=== PATIENT | female | born 1935 | race Caucasian/White ===

== ENCOUNTER → 2016-08-22 | Outpatient (CLI) | payer MEDICARE, OTHER ==
[2016-08-22 14:14] LABS: BASOPHIL # 0.1 K/uL (0.0-0.2); EOSINOPHIL # 0.2 K/uL (0.0-0.5); EOSINOPHIL % 2.8 %; HEMATOCRIT 44.8 % (30.0-46.0); HEMOGLOBIN 15.1 g/dL (10.0-15.0); IMMATURE GRANULOCYTE % 0.2 %; LYMPHOCYTE # 2.2 K/uL (0.8-4.0); LYMPHOCYTE % 26.1 %; MCH 29.4 pg (27.0-34.0); MCHC 33.7 gm/dL (32.0-36.5); MCV 87.3 fl (83.0-98.0); MONOCYTE # 0.5 K/uL (0.0-1.0); MONOCYTE % 5.4 %; MPV 9.6 fl (9.4-12.4); NEUTROPHIL # (ANC) 5.4 K/uL (1.8-7.8); NEUTROPHIL % 64.5 %; NRBC % 0 /100WBC (0-0.00); PLATELET COUNT 247 K/uL (150-450); RBC 5.13 M/uL (3.00-5.00); RDW-CV 13.4 % (11.9-14.6); WBC 8.3 K/uL (4.0-11.0)
[2016-08-22 14:29] LABS: ALBUMIN 4.2 gm/dL (3.5-5.0); ALK PHOS 113 IU/L (33-138); ALT 24 IU/L (12-78); ANION GAP 12.4 (10.0-19.0); AST 21 IU/L (10-40); BLOOD UREA NITROGEN 11 mg/dL (6-24); CALCIUM 9.6 mg/dL (8.5-10.5); CHLORIDE 100 mMol/L (96-110); CO2 29 mMol/L (22-32); CREATININE 0.8 mg/dL (0.5-1.1); ESTIMATED GFR (MDRD EQUATION) > 60; POTASSIUM 3.4 mMol/L (3.7-5.1); SODIUM 138 mMol/L (135-145); TOTAL BILIRUBIN 0.7 mg/dL (0.0-1.5); TOTAL PROTEIN 7.7 g/dL (6.0-8.4)
== END | disposition disaster alternative care site (69) ==
LOC: LNHI 14:07
PROVIDERS: Internal Medicine Cardiovascular Disease
DX: E78.2 Mixed hyperlipidemia (principal); I25.119 Atherosclerotic heart disease of native coronary artery with unspecified angina pectoris; I10 Essential (primary) hypertension

== ENCOUNTER → 2016-09-12 | Outpatient (CLI) | payer MEDICARE, OTHER ==
--- NOTE | ~2016-09-12 | ESTC ---
Cardiac Perfusion Imaging Demographics Patient Name JENNI Hendrix Gender Female Patient Number [id number] Race Visit Number [id number] [place] [id number] Room Number Accession Number [id number] Height 61 inches Date of 1935 Weight 130 pounds Yuliana Ball MD Interpreting Carolin Bustillos Date of study 09/12/2016 Physician MD Supervising MD/MLP Yuliana Thomas NM Technologist A Ordering Physician Yuliana Thomas Stress A testing and regulating technician Stress ECG Reading Yuliana Thomas Nurse Karla Ojeda RN Physician A The procedure was explained in detail to the patient. Risks, complications and alternative treatments were reviewed. Written consent was obtained. Medications Reviewed with Patient prior to Procedure. Procedure Procedure Type: Nuclear Stress Test:Exercise, Cardiolite Stress Test Procedure Start time: 09/12/2016 08:05 Indications: Chest pain and Shortness of Breath with Exertion. Risk Factors The patient risk factors include:hypercholesterolemia and hypertension. Conclusions Summary Perfusion Images: The overall quality of the study is good. Left ventricular cavity is noted to be normal on the stress and normal on the rest images. There is no evidence of abnormal lung activity. The right ventricle is not visualized an cannot be assessed. Impression ECG portion of exercise stress test is clinically negative for ischemia by diagnostic criteria. Patient exercised according to the Colin protocol for 6:01 minutes, reached 99% of MPHR, achieving 7 METS. Myocardial perfusion imaging is normal. Overall left ventricular systolic function was normal without regional wall motion abnormalities. Calculated LVEF is 79% and TID ratio is 0.88. Stress Protocols Resting ECG SR, Ant T inversions Pre-stress physical exam: Patient assessed by Dr Bridges prior to testing. Stress Protocol:Exercise Peak HR:137 bpm Predicted HR: 140 bpm % of predicted HR: 98 Test duration:06:00 min ECG Findings No ECG changes suggestive of ischemia. Arrhythmias PACs and PVCs Symptoms Shortness of breath. Stress Interpretation Appropriate hemodynamic response to exercise. No significant ST-T wave changes with exercise. EKG portion is negative for ischemia by diagnostic criteria. The Joyce Treadmill score was 6 .This corresponds to a low risk stress test. Imaging Results Summed scores - Summed stress score: 0 - Summed rest score: 0 - Summed difference score: 0 Stress ejection Ejection fraction:80 % EDV :59 ml ESV :12 ml Stroke volume :47 ml LV mass :96 gr Imaging Protocols Rest Stress Isotope:Tc99m Sestamibi IV Isotope: Tc99m Sestamibi IV Isotope dose:10.9 mCi Isotope dose:34.7 mCi Date:09/12/2016 07:07 Date:09/12/2016 08:46 Technique: SPECT Technique: Gated Supine SPECT Supine Scan Time:45-60 minutes post Scan Time:45-60 minutes post injection injection Medical History Admission Data Admission date: 09/12/2016 Admission Time: 06:48 Hospital Status: Outpatient. Signatures dtt: SANTANA URIAS dtd: 09/12/16 0805 Physician Self Edit
== END | disposition disaster alternative care site (69) ==
LOC: GRAD 08-29 07:15
DX: I25.10 Atherosclerotic heart disease of native coronary artery without angina pectoris (principal); E78.00 Pure hypercholesterolemia, unspecified; I10 Essential (primary) hypertension
CPT/HCPCS: A9500

== ENCOUNTER 2016-11-17 12:37 | Emergency (ER) | payer MEDICARE, OTHER ==
--- NOTE | ~2016-11-17 | ER ---
PATIENT'S NAME: DONALD ARTEAGA [facility] AGE: 81 Y [address] ROOM: [place] [address] LOCATION: ED ADMIT DATE: 11/17/2016 ER/Outpatient Report DISCHARGE DATE: 11/17/2016 FAMILY PHYSICIAN: Gallo Leon MD ATTENDING PHYSICIAN: Ana Cristina Yun Time of Arrival: 1237 hours. Time of Evaluation: 1300 hours. CHIEF COMPLAINT: Lightheaded, history of a pacemaker. HISTORY OF PRESENT ILLNESS: This is an 81-year-old female, who presents to the ER. States last evening, she was lying in bed and had episodes of feeling lightheaded. She states her head felt full, and then she had the hot sensation that radiated from the top of her head down to her face. She states that it did not make her feel short of breath. She did not have any chest pain with these episodes. She states she had 3 of them in about a half an hour time. She states she was able to sleep all night. She woke up at 9:30 this morning, and then she had another episode around 10 o'clock. She called her daughter, and on their way here to be evaluated she had another one. She has had no recent illness. No fever or chills. She states when she has these episodes, she feels like she is going to pass out. She states she is conscious through all of the episodes. She states she never has felt weak and has had no troubles with her speech during them. She states that when she had her pacemaker placed a couple of years ago, she had similar instances where she had syncopal episodes and that resulted in her pacemaker. She denies any other problems at this time. ALLERGIES: PENICILLIN, SULFA, AND LISINOPRIL. MEDICATIONS: Please see medication list in nurse's notes. PAST MEDICAL HISTORY: Hypertension, pacemaker, hypothyroidism. SOCIAL HISTORY: Denies smoking, drug, or alcohol use. REVIEW OF SYSTEMS: All systems reviewed and were negative with the exception of those discussed in the HPI. PATIENT'S NAME: DONALD ARTEAGA [facility] AGE: 81 Y [address] ROOM: [place], [place] [address] LOCATION: ED ADMIT DATE: 11/17/2016 ER/Outpatient Report DISCHARGE DATE: 11/17/2016 FAMILY PHYSICIAN: Gallo Leon MD ATTENDING PHYSICIAN: Ana Cristina Yun PHYSICAL EXAMINATION: VITAL SIGNS: Weight 61 kg taken, blood pressure is 140/64, pulse 71, respirations 20, temperature 97.4 degrees tympanically, and saturations 94% on room air. Carter Coma Score is 15. GENERAL: An alert, calm, well-developed female, in no acute distress. HEENT: Head: Normocephalic. Eyes: Pupils are equal and reactive to light. Ears: TMs display good light reflexes bilaterally. Auditory canals clear. Nose: Turbinates pink with no drainage. Throat: No exudates or erythema. Does display moist mucous membranes. LUNGS: Clear to auscultation bilaterally. HEART: Regular rate and rhythm. ABDOMEN: Soft, nontender. She has good bowel sounds throughout. EXTREMITIES: No clubbing or cyanosis. She has full range of motion of all limbs. SKIN: Warm, dry, and intact. LABORATORY DATA AND X-RAYS: CBC: White count is 7.7, hemoglobin is 14.6, platelets 188, ANC is 5.7, INR is 0.94. CMS: Sodium 137, potassium 3.5, glucose is 110, otherwise unremarkable. Magnesium is 1.8. CPK is 54, CK-MB is 0.5, troponin I is less than 0.040, pro-BNP is 462. Urinalysis is negative for any infection. EKG shows ST and T-wave abnormalities. We did do comparisons to prior EKGs, and they are all similar. Chest x-ray was negative for any infiltrate. CT scan was done and shows small-vessel ischemic changes but nothing acute. This is reported by Dr. Navarrete. We also have the patient's pacemaker interrogated, and no acute findings were found with that either. IMPRESSION: 1. Near-syncope. 2. Mild hypokalemia. 3. Episodes of feeling lightheaded. ASSESSMENT AND PLAN: We did monitor the patient here for quite some time. The patient states that all the sensations of her head feeling full or lightheaded all went away while she was here. I did discuss the patient's care with Dr. Yun. We will dismiss the patient home. She needs to monitor her symptoms closely, and I would like her to follow up with her primary care physician in 2 days for followup care or should return here to the emergency if anything is to change. The patient and the patient's daughter understand and agree with care. ROBLES CORREA PA-C FOR ANA CRISTINA YUN MD PATIENT'S NAME: DONALD ARTEAGA [facility] AGE: 81 Y [address] ROOM: [place] [address] LOCATION: [facility] ADMIT DATE: 11/17/2016 ER/Outpatient Report DISCHARGE DATE: 11/17/2016 FAMILY PHYSICIAN: Gallo Leon MD ATTENDING PHYSICIAN: Ana Cristina Yun/donna /[id number] d: 11/17/16 2347 t: 11/26/16 0757, OUTPATIENT REPORT
[2016-11-17 13:42] LABS: BILIRUBIN URINE NEGATIVE (NEGATIVE); BLOOD URINE NEGATIVE /UL (NEGATIVE); COLOR URINE YELLOW (YELLOW); GLUCOSE URINE NEGATIVE (NEGATIVE); KETONE URINE NEGATIVE (NEGATIVE); LEUKOCYTES URINE 25 /UL (NEGATIVE); NITRITE URINE NEGATIVE (NEGATIVE); PROTEIN URINE NEGATIVE (NEGATIVE); SPEC GRAVITY URINE 1.015 (1.003-1.035); TURBIDITY URINE CLEAR (CLEAR); UROBILINOGEN URINE NORMAL (NORMAL)
[2016-11-17 13:48] LABS: BACTERIA URINE NEGATIVE (NEGATIVE); EPITHELIAL URINE RARE #/HPF (NEGATIVE); RBC URINE NEGATIVE #/HPF (NEGATIVE); WBC URINE RARE #/HPF (NEGATIVE)
[2016-11-17 13:58] LABS: BASOPHIL # 0.1 K/uL (0.0-0.2); BASOPHIL % 0.7 %; EOSINOPHIL # 0.1 K/uL (0.0-0.5); EOSINOPHIL % 1.2 %; HEMATOCRIT 42.7 % (30.0-46.0); HEMOGLOBIN 14.6 g/dL (10.0-15.0); IMMATURE GRANULOCYTE % 0.1 %; LYMPHOCYTE # 1.5 K/uL (0.8-4.0); LYMPHOCYTE % 19.2 %; MCH 30.4 pg (27.0-34.0); MCHC 34.2 gm/dL (32.0-36.5); MCV 88.8 fl (83.0-98.0); MONOCYTE # 0.4 K/uL (0.0-1.0); MONOCYTE % 4.6 %; MPV 9.2 fl (9.4-12.4); NEUTROPHIL # (ANC) 5.7 K/uL (1.8-7.8); NEUTROPHIL % 74.2 %; NRBC % 0 /100WBC (0-0.00); RBC 4.81 M/uL (3.00-5.00); RDW-CV 13.1 % (11.9-14.6); WBC 7.7 K/uL (4.0-11.0)
[2016-11-17 14:01] LABS: PLATELET COUNT 188 K/uL (150-450)
[2016-11-17 14:07] LABS: INR - (THERAPEUTIC) 0.94 (0.92-1.07); PROTIME 9.9 SECONDS (9.8-11.4); PTT 26 SECONDS (25-32)
[2016-11-17 14:18] LABS: ALBUMIN 3.8 gm/dL (3.5-5.0); ALK PHOS 134 IU/L (33-138); ALT 24 IU/L (12-78); ANION GAP 12.5 (10.0-19.0); AST 23 IU/L (10-40); BLOOD UREA NITROGEN 10 mg/dL (6-24); CHLORIDE 98 mMol/L (96-110); CO2 30 mMol/L (22-32); CPK 54 IU/L (21-215); CREATININE 0.7 mg/dL (0.5-1.1); MAGNESIUM 1.8 mg/dL (1.8-2.6); POTASSIUM 3.5 mMol/L (3.7-5.1); SODIUM 137 mMol/L (135-145); TOTAL BILIRUBIN 0.7 mg/dL (0.0-1.5); TOTAL PROTEIN 7.2 g/dL (6.0-8.4)
== END 2016-11-17 15:44 | disposition disaster alternative care site (69) ==
LOC: GMED 12:37
PROVIDERS: Physician Assistant Medical
DX: R42 Dizziness and giddiness (principal); R55 Syncope and collapse; E87.6 Hypokalemia; I10 Essential (primary) hypertension; E03.9 Hypothyroidism, unspecified; Z95.0 Presence of cardiac pacemaker; Z88.0 Allergy status to penicillin; Z88.2 Allergy status to sulfonamides; Z88.8 Allergy status to other drugs, medicaments and biological substances; Z79.82 Long term (current) use of aspirin; Z79.899 Other long term (current) drug therapy